=== PATIENT | female | born 1980 | race Caucasian/White ===

== ENCOUNTER 2020-12-04 23:35 | Emergency (ER) | payer BC, SELFPAY ==
[2020-12-04 23:41] VITALS: BP 155/83; PULSE 69; RESP 18; TEMP 36.6; O2SAT 98; BMI 35.7
--- NOTE | 2020-12-04 23:48 | ECG_ITS ---
[facility] Test Date: 2020-12-05 Pat Name: Loi Sanchez Department: Room: Gender: Female Financial Accounting Manager: : 1980 Requested By: Logan Joseph Order Number: [id number] Nicole MD: Maria Teresa Avila M.D. Measurements Intervals [place] Rate: 57 P: 47 SD: 127 QRS: 25 QRSD: 92 T: 10 QT: 420 QTc: 411 Interpretive Statements SINUS BRADYCARDIA No previous ECG available for comparison Electronically Signed On 12-05-2020 20:13:01 PATTERN STORAGE CLERK by Maria Teresa Avila M.D. [id number]
--- NOTE | 2020-12-04 23:48 | XRR_ITS ---
PROCEDURE INFORMATION: Exam: XR Chest, 1 View Exam date and time: 12/05/2020 12:16 AM Age: 40 years old Clinical indication: Chest pain; Other: Substernal radiating to left arm; Additional info: Cp TECHNIQUE: Imaging protocol: XR of the chest Views: 1 view. COMPARISON: CR Chest 2 views* [id number] 01/21/2017 1:09 AM FINDINGS: Lungs: No consolidation. Pleural space: No pleural effusion. No pneumothorax. Heart/Mediastinum: No cardiomegaly. Bones/joints: No acute fracture. XR/XR chest 1V portable [id number] IMPRESSION: No acute findings.
--- NOTE | 2020-12-05 00:09 | ED_ITS ---
HPI - Chest Pain General: Chief Complaint: Chest Pain Stated Complaint: chest pains/pain in left arm left side of neck/ Time Seen by Provider: 12/04/20 23:41 Source: patient Mode of arrival: ambulatory Limitations: no limitations History of Present Illness: HPI narrative: 40-year-old female who is a non- smoker with no history of medical problem states started having chest pain roughly 2 hours ago. States is a sharp pain in center of her chest rating down her arm or jaw on her abdomen. She states that has been constant but is eased up. She states it was originally a 7 out of 10 and currently is a 3 out of 10. She denies any nausea or shortness of breath. She denies any recent long trips or surgeries. Denies any vomiting or diarrhea. MD complaint: chest pain Associated symptoms: Deny abdominal pain, dyspnea, fever(s), nausea or vomiting Review of Systems Const: Denies: fever(s), chills, body aches or change in appetite Eyes: Denies: blurry vision or eye discomfort ENMT: Denies: throat pain or dental pain Card: Reports: chest pain Resp: Denies: dyspnea GI: Denies: abdominal pain, nausea, vomiting or diarrhea : Denies: dysuria Musc: Denies: neck pain or back pain Skin/Breast: Denies: rash Neuro: Denies: headache(s) Psych: Denies: depression Mj/Lymph: Denies: easy bruising All/Imm: Denies: urticaria [facility] ED Female Reproductive History: Date of last menstrual period: 11/26/20 Physical Exam Const: COMMON NORMALS: no acute distress, patient oriented x3 and healthy appearing HENMT: COMMON NORMALS: normocephalic and atraumatic HEAD & SCALP: normocephalic and atraumatic Eye: COMMON NORMALS: Equal, round and reactive pupils present and EOMs intact bilaterally PUPIL: Yes Equal, round and reactive pupils present Neck/C-Spine: COMMON NORMALS: full ROM and supple Chest: COMMONS NORMALS: normal inspection of the chest and normal palpation of entire chest wall Resp: COMMON NORMALS: normal respiratory effort, No retractions, No use of accessory muscles and clear to auscultation bilaterally AUSCULTATION: clear to auscultation bilaterally Cardio: COMMON NORMALS: regular rate, regular rhythm and No murmurs present (Cardio) RATE: regular rate RHYTHM: regular rhythm GI: COMMON NORMALS: Normal to inspection, nondistended, normoactive bowel sounds present, Soft to palpation, non-tender and no masses PALPATION: Yes Soft to palpation Extremity: COMMON NORMALS: normal to inspection and full ROM Neuro: COMMON NORMALS: patient oriented x3, moves all extremities and no focal motor deficits Psych: COMMON NORMALS: mental status grossly normal, Normal thought process p resent and cooperative THOUGHT PROCESS: Normal thought process present Skin: COMMON NORMALS: no rashes or lesions noted and no wounds GENERAL SKIN EXAM: no rashes or lesions noted Course Vital Signs: Vital signs: Vital Signs Temperature 97.8 F 12/04/20 23:41 Pulse Rate 71 12/05/20 01:13 Respiratory Rate 26 H 12/05/20 01:13 Blood Pressure 134/76 12/05/20 01:13 Pulse Oximetry 100 12/05/20 01:13 MDM - Chest Pain MDM Narrative: Medical decision making narrative: Patient presents here with chest pain that then became epigastric bowel pain. I believe is likely gastritis. Patient's abdominal CT and troponins here are all negative. Patient is stable for discharge and is to follow-up with PCP in 2 to 4 days. We will start her on Protonix and Zofran. She is to return if worsening. She understands agrees to plan. Lab Data: Labs: Lab Results 12/05/20 12/05/20 12/05/20 Range/Units 00:02 00:02 00:02 WBC 11.3 H (4.0-10.0) 10^3/ uL RBC 4.48 (4.1-5.3) 10^6/u L Hgb 13.0 (11.5-15.3) g/dL Hct 39.9 (37.0-47.0) % MCV 89.1 (81-99) fL MCH 29.0 (28.0-34.0) pg MCHC 32.6 (30.0-36.0) g/dL RDW 11.9 L (12.1-15.1) % Plt Count 315 (130-400) 10^3/c mm MPV 9.5 (7.4-10.4) fL Neut % (Auto) 64.3 % Lymph % (Auto) 28.6 % [place] % (Auto) 5.9 % Eos % (Auto) 0.6 % Baso % (Auto) 0.3 % Neut # (Auto) 7.25 (1.8-7.7) 10^3/u L Lymph # (Auto) 3.2 (0.8-4.8) 10^3/u L [place] # (Auto) 0.7 (0.2-0.9) 10^3/u L Eos # (Auto) 0.1 (0.0-0.8) 10^3/u L Baso # (Auto) 0.0 (0.0-0.1) 10^3/u L Nucleated RBC % (a uto) 0 % Nucleated RBCs # 0.0 /100WBC Sodium 140 (136-145) mmol/L Potassium 3.4 L (3.5-5.1) mmol/L Chloride 101 (98-107) mmol/L Carbon Dioxide 26 (22-29) mmol/L Anion Gap 16.4 (5-19) BUN 17 (6-20) mg/dL Creatinine 0.9 (0.5-0.9) mg/dL GFR Calculation 69.7 L (90-130) mL/min Glucose 123 H (65-115) mg/dL Calculated Osmolal ity 293 (285-295) mOsm/k g Calcium 9.2 (8.5-10.5) mg/dL Total Bilirubin 0.3 (0.15-1.2) mg/dL AST 12 (0-32) U/L ALT 15 (0-33) U/L Alkaline Phosphata se 72 (35-105) IU/L Troponin T Baselin e 6 (0-10) ng/L Troponin T 120 Min [place] (0-10) ng/L Delta Troponin T (0-10) ABS# Total Protein 6.6 (6.6-8.7) g/dL Albumin 4.2 (3.5-5.2) g/dL Globulin 2.4 (1.3-4.6) g/dL Lipase (13-60) U/L HCG, Qual (Negative) 12/05/20 12/05/20 12/05/20 Range/Units 00:02 00:02 02:21 WBC (4.0-10.0) 10^3/ uL RBC (4.1-5.3) 10^6/u L Hgb (11.5-15.3) g/dL Hct (37.0-47.0) % MCV (81-99) fL MCH (28.0-34.0) pg MCHC (30.0-36.0) g/dL RDW (12.1-15.1) % Plt Count (130-400) 10^3/c mm MPV (7.4-10.4) fL Neut % (Auto) % Lymph % (Auto) % [place] % (Auto) % Eos % (Auto) % Baso % (Auto) % Neut # (Auto) (1.8-7.7) 10^3/u L Lymph # (Auto) (0.8-4.8) 10^3/u L [place] # (Auto) (0.2-0.9) 10^3/u L Eos # (Auto) (0.0-0.8) 10^3/u L Baso # (Auto) (0.0-0.1) 10^3/u L Nucleated RBC % (a uto) % Nucleated RBCs # /100WBC Sodium (136-145) mmol/L Potassium (3.5-5.1) mmol/L Chloride (98-107) mmol/L Carbon Dioxide (22-29) mmol/L Anion Gap (5-19) BUN (6-20) mg/dL Creatinine (0.5-0.9) mg/dL GFR Calculation (90-130) mL/min Glucose (65-115) mg/dL Calculated Osmolal ity (285-295) mOsm/k g Calcium (8.5-10.5) mg/dL Total Bilirubin (0.15-1.2) mg/dL AST (0-32) U/L ALT (0-33) U/L Alkaline Phosphata se (35-105) IU/L Troponin T Baselin e (0-10) ng/L Troponin T 120 Min [place] 6.00 (0-10) ng/L Delta Troponin T 0 (0-10) ABS# Total Protein (6.6-8.7) g/dL Albumin (3.5-5.2) g/dL Globulin (1.3-4.6) g/dL Lipase 25 (13-60) U/L HCG, Qual Negative (Negative) Imaging Data^: CXR: Attestation: I personally reviewed and interpreted this imaging study as follows : My impression: no acute abnormality CT Abd/Pel: Radiologist's impression: [facility] [place] [address] CT Scan Report Signed Patient: Loi Sanchez Unit #: [id number] : 1980 Age/Sex: 40 / F ADM Date: 12/04/20 Loc: ER Room/Bed: Attending Dr: Ordering Provider/Ordering MD: Logan Joseph MD Date of Service: 12/05/20 Procedure(s): CT abdomen pelvis w con* [id number] Accession Number(s): [id number] Report Number: [id number] PROCEDURE INFORMATION: Exam: CT Abdomen And Pelvis With Contrast Exam date and time: 12/05/2020 1:05 AM Age: 40 years old Clinical indication: Nausea; Abdominal pain; Localized; Left upper quadrant (luq); Prior surgery; Surgery date: 6+ months; Surgery type: Gb; Additional info: Abd pain TECHNIQUE: Imaging protocol: Computed tomography of the abdomen and pelvis with intravenous contrast. Radiation optimization: All CT scans at this facility use at least one of these dose optimization techniques: automated exposure control; mA and/or kV adjustment per patient size (includes targeted exams where dose is matched to clinical indication); or iterative reconstruction. Contrast material: OMNI 300; Contrast volume: 95 ml; Contrast route: INTRAVENOUS (IV); COMPARISON: CT abdomen pelvis w con* [id number] 04/26/2014 11:32 AM RADIATION DOSE METRICS: Total DLP (mGy-cm): 957.81 FINDINGS: Lungs: Minimal atelectasis at bilateral lung bases. Liver: Unremarkable. Gallbladder and bile ducts: Status post cholecystectomy. The common bile duct is dilated to 1.2 cm. This may be a reaction to absent gallbladder. Pancreas: Unremarkable. Spleen: Unremarkable. Adrenal glands: Unremarkable. Kidneys and ureters: The right kidney is unremarkable. There is a 1.6 cm cyst in the left kidney upper pole. Stomach and bowel: No bowel obstruction identified. No diverticulitis identified. Appendix: A normal-appearing appendix is seen in the right lower quadrant. Intraperitoneal space: No free intraperitoneal air identified. No free intraperitoneal fluid identified. Vasculature: No abdominal aortic aneurysm. Lymph nodes: Unremarkable. Urinary bladder: Unremarkable as visualized. Reproductive: Unremarkable as visualized. Bones/joints: Unremarkable. No acute fracture. Soft tissues: Unremarkable. CT/CT abdomen pelvis w con* [id number] IMPRESSION: 1. No acute intra-abdominal/intrapelvic process identified. EKG Data^: EKG 1: Attestation: I personally reviewed and interpreted this EKG as follows: EKG interpretation date: 12/05/20 EKG interpretation time: 00:02 Interpretation: sinus marychuy hr [address] or t wave abnormalities qrs 92 qtc 415 Discharge Plan Discharge Patient Disposition: Home Clinical Impression: Abdominal pain Chest pain Qualifiers: Chest pain type: unspecified Qualified Code(s): R07.9 - Chest pain, unspecified Condition: Stable Prescriptions: New ondansetron 4 mg tablet,disintegrating 4 mg PO Q6H PRN (Reason: nausea and vomiting) Qty: 14 RF: 0 Protonix 40 mg tablet,delayed release (DR/EC) 40 mg PO DAILY Qty: 60 RF: 0 Discharge Orders: Discharge ED (Routine); Ordered 12/05/20 Ordered By: Logan Joseph Referrals: Nhi Cespedes FNP [Primary Care Provider] - 1-3 days Discharge Diet: Advance as tolerated Discharge Activity: Resume usual activity Patient Instructions: Abdominal Pain (ED) Coding Level of Care Code ED Surveying Technician for Chg Fwd Exam Comprehensive
[2020-12-05 00:11] LABS: Basophils % 0.3 %; Eosinophils # 0.1 10^3/uL (0.0-0.8); Eosinophils % 0.6 %; Hematocrit 39.9 % (37.0-47.0); Lymphocytes # 3.2 10^3/uL (0.8-4.8); Lymphocytes % 28.6 %; Mean Corpuscular HGB Conc 32.6 g/dL (30.0-36.0); Mean Corpuscular Volume 89.1 fL (81-99); Mean Platelet Volume 9.5 fL (7.4-10.4); Monocytes # 0.7 10^3/uL (0.2-0.9); Monocytes % 5.9 %; Neutrophils # 7.25 10^3/uL (1.8-7.7); Neutrophils % 64.3 %; Nucleated Red Blood Cells % 0 %; Platelet Count 315 10^3/cmm (130-400); Red Blood Count 4.48 10^6/uL (4.1-5.3); Red Cell Distribution Width 11.9 % (12.1-15.1); White Blood Count 11.3 10^3/uL (4.0-10.0)
[2020-12-05] MEDS: aspirin 81 mg Chew Tablet 324 MG PO (00:16)
[2020-12-05] MEDS: ondansetron 2 mg/ML SDV 2 mL 4 MG IVP ×2 (00:16→01:11)
[2020-12-05] MEDS: morphine 4 mg/mL SDV 1 mL IVP (00:16)
[2020-12-05 00:34] LABS: Alanine Aminotransferase 15 U/L (0-33); Albumin Level 4.2 g/dL (3.5-5.2); Alkaline Phosphatase 72 IU/L (35-105); Anion Gap 16.4 (5-19); Aspartate Amino Transferase 12 U/L (0-32); Blood Urea Nitrogen 17 mg/dL (6-20); Calcium 9.2 mg/dL (8.5-10.5); Carbon Dioxide 26 mmol/L (22-29); Chloride 101 mmol/L (98-107); Globulin 2.4 g/dL (1.3-4.6); Glomerular Filtration Rate 69.7 mL/min (90-130); Glucose 123 mg/dL (65-115); Osmolality Calculated 293 mOsm/kg (285-295); Potassium 3.4 mmol/L (3.5-5.1); Sodium 140 mmol/L (136-145); Total Bilirubin 0.3 mg/dL (0.15-1.2); Total Protein 6.6 g/dL (6.6-8.7)
[2020-12-05 00:36] LABS: Troponin(5th) Baseline 6 ng/L (0-10)
--- NOTE | 2020-12-05 01:03 | CTR_ITS ---
PROCEDURE INFORMATION: Exam: CT Abdomen And Pelvis With Contrast Exam date and time: 12/05/2020 1:05 AM Age: 40 years old Clinical indication: Nausea; Abdominal pain; Localized; Left upper quadrant (luq); Prior surgery; Surgery date: 6+ months; Surgery type: Gb; Additional info: Abd pain TECHNIQUE: Imaging protocol: Computed tomography of the abdomen and pelvis with intravenous contrast. Radiation optimization: All CT scans at this facility use at least one of these dose optimization techniques: automated exposure control; mA and/or kV adjustment per patient size (includes targeted exams where dose is matched to clinical indication); or iterative reconstruction. Contrast material: OMNI 300; Contrast volume: 95 ml; Contrast route: INTRAVENOUS (IV); COMPARISON: CT abdomen pelvis w con* [id number] 04/26/2014 11:32 AM RADIATION DOSE METRICS: Total DLP (mGy-cm): 957.81 FINDINGS: Lungs: Minimal atelectasis at bilateral lung bases. Liver: Unremarkable. Gallbladder and bile ducts: Status post cholecystectomy. The common bile duct is dilated to 1.2 cm. This may be a reaction to absent gallbladder. Pancreas: Unremarkable. Spleen: Unremarkable. Adrenal glands: Unremarkable. Kidneys and ureters: The right kidney is unremarkable. There is a 1.6 cm cyst in the left kidney upper pole. Stomach and bowel: No bowel obstruction identified. No diverticulitis identified. Appendix: A normal-appearing appendix is seen in the right lower quadrant. Intraperitoneal space: No free intraperitoneal air identified. No free intraperitoneal fluid identified. Vasculature: No abdominal aortic aneurysm. Lymph nodes: Unremarkable. Urinary bladder: Unremarkable as visualized. Reproductive: Unremarkable as visualized. Bones/joints: Unremarkable. No acute fracture. Soft tissues: Unremarkable. CT/CT abdomen pelvis w con* [id number] IMPRESSION: 1. No acute intra-abdominal/intrapelvic process identified. COMMENTS: Consistent with the [employer]'s Incidental Findings Committee white paper (J Am Emily Radiol 2018): Any incidental renal lesion less than 1 cm or classified as too small to characterize, or any incidental cystic renal lesion characterized as simple-appearing, is likely benign. No follow-up imaging is recommended for these lesions per consensus recommendations based on imaging criteria. Radiation Dose CTDIVOL = (mGy): DLP = 957.81 (mGy-cm)
[2020-12-05] MEDS: HYDROmorphone 1 mg/mL INJ 1 mL IVP (01:10)
[2020-12-05 01:13] VITALS: BP 134/76; PULSE 71; RESP 26; O2SAT 100
[2020-12-05 01:21] LABS: Lipase 25 U/L (13-60)
[2020-12-05 01:59] LABS: HCG, Serum Qual Negative (Negative)
[2020-12-05] MEDS: iohexol 300 mg/mL 100 mL Btl IV (02:11)
[2020-12-05 02:49] LABS: Troponin 5 2HR Delta 0 ABS# (0-10)
[2020-12-05 03:07] VITALS: BP 113/55; PULSE 57; RESP 18; O2SAT 97
== END 2020-12-05 03:07 | disposition home or self-care (01) ==
PROVIDERS: Emergency Provider Emergency Medicine; PCP Nurse Practitioner Family
DX: R07.9 Chest pain, unspecified (principal); R10.9 Unspecified abdominal pain
CPT/HCPCS: 12345; 71045; 74177; 80053; 83690; 84484; 84703; 85025; 93005; 96374; 96375; 96376; 99282; 99284; J1170; J2270; J2405; Q9967

== ENCOUNTER 2021-11-21 17:35 | Emergency (ER) | payer BC, SELFPAY ==
[2021-11-21 17:53] VITALS: BP 131/78; PULSE 87; RESP 22; TEMP 36.9; O2SAT 95; BMI 37.0
--- NOTE | 2021-11-21 20:27 | XRR_ITS ---
PROCEDURE INFORMATION: Exam: XR Chest Exam date and time: 11/21/2021 8:27 PM Age: 41 years old Clinical indication: Cough and shortness of breath; Additional info: SOB TECHNIQUE: Imaging protocol: XR of the chest. Views: 1 view. COMPARISON: No relevant prior studies available. FINDINGS: Lungs: Calcified granuloma in the right lower lung. No consolidation. Pleural spaces: Unremarkable. No pleural effusion. No pneumothorax. Heart/Mediastinum: Unremarkable. No cardiomegaly. Bones/joints: Unremarkable. XR/XR chest 1V portable [id number] IMPRESSION: No acute findings.
[2021-11-21] MEDS: sodium chloride 0.9% 1,000 ML 999 ML IV (20:40)
[2021-11-21] MEDS: ondansetron 2 mg/ML SDV 2 mL 4 MG IVP (20:42)
[2021-11-21] MEDS: ketorolac 30 mg/mL INJ 15 MG IVP (20:45)
--- NOTE | 2021-11-21 20:56 | ED_ITS ---
HPI - Headache General: Chief Complaint: Headache Stated Complaint: sob,headache Time Seen by Provider: 11/21/21 20:23 Source: patient Mode of arrival: ambulatory Limitations: no limitations History of Present Illness: HPI Narrative: 41-year-old female who states that she has had nasal congestion cough generalized body aches decreased appetite over the last 4 to 5 days states she is also had a lot of sinus pressure and sinus pain and felt very congested states she had a decreased appetite and just feeling generally malaised. No fever no dyspnea states she had mild headaches that come and gone no severe headaches denies any neck pain. Associated symptoms: Deny chest pain, nausea, rash or vomiting Review of Systems Const: Reports: chills and body aches Eyes: Denies: blurry vision or eye discomfort ENMT: Reports: nasal congestion Card: Denies: chest pain Resp: Reports: non-productive cough GI: Denies: abdominal pain, nausea, vomiting or diarrhea : Denies: dysuria Musc: Denies: neck pain or back pain Skin/Breast: Denies: rash Neuro: Reports: headache(s) Psych: Denies: depression Mj/Lymph: Denies: easy bruising All/Imm: Denies: urticaria [facility] ED Female Reproductive History: Date of last menstrual period: 11/26/20 Physical Exam Const: COMMON NORMALS: no acute distress, patient oriented x3 and healthy appearing HENMT: COMMON NORMALS: normocephalic and atraumatic HEAD & SCALP: normocephalic and atraumatic OTHER: Nasal congestion along with sinus tenderness over maxillary sinuses Eye: COMMON NORMALS: Equal, round and reactive pupils present and EOMs intact bilaterally PUPIL: Yes Equal, round and reactive pupils present Neck/C-Spine: COMMON NORMALS: full ROM, supple and no meningeal signs Chest: COMMONS NORMALS: normal inspection of the chest and normal palpation of entire chest wall Resp: COMMON NORMALS: normal respiratory effort, No retractions, No use of accessory muscles and clear to auscultation bilaterally AUSCULTATION: clear to auscultation bilaterally Cardio: COMMON NORMALS: regular rate, regular rhythm and No murmurs present (Cardio) RATE: regular rate RHYTHM: regular rhythm GI: COMMON NORMALS: Normal to inspection, nondistended, normoactive bowel sounds present, Soft to palpation, non-tender and no masses PALPATION: Yes Soft to palpation Extremity: COMMON NORMALS: normal to inspection and full ROM Neuro: COMMON NORMALS: patient oriented x3, moves all extremities and no focal motor deficits MENINGEAL SIGNS: Yes no meningeal signs Psych: COMMON NORMALS: mental status grossly normal, Normal thought process present and cooperative THOUGHT PROCESS: Normal thought process present Skin: COMMON NORMALS: no rashes or lesions noted and no wounds GENERAL SKIN EXAM: no rashes or lesions noted Course Vital Signs: Vital signs: Vital Signs Temperature 98.5 F 11/21/21 17:53 Pulse Rate 87 11/21/21 17:53 Respiratory Rate 22 H 11/21/21 17:53 Blood Pressure 131/78 11/21/21 17:53 Pulse Oximetry 95 11/21/21 17:53 MDM - Headache MDM Narrative: Medical decision making narrative: Patient presents here with cough congestion sinus pain likely has a maxillary sinusitis patient's headaches not severe no signs of meningitis blood work and Covid here negative we will start on Augmentin she is stable for discharge is to follow-up with PCP and return if worsening. Lab Data: Labs: Lab Results 11/21/21 11/21/21 11/21/21 20:50 20:50 20:55 WBC 4.4 10^3/uL 10^3/ uL (4.0-10.0) RBC 4.54 10^6/uL 10^6 /uL (4.1-5.3) Hgb 13.4 g/dL g/dL (11.5-15.3) Hct 40.6 % % (37.0-47.0) MCV 89.4 fl fl (81-99) MCH 29.5 pg pg (28.0-34.0) MCHC 33.0 g/dL g/dL (30.0-36.0) RDW 11.9 % L % (12.1-15.1) Plt Count 183 10^3/cmm 10^3 /cmm (130-400) MPV 9.4 fL fL (7.4-10.4) Neut % (Auto) 51.8 % % Lymph % (Auto) 35.6 % % [place] % (Auto) 11.7 % % Eos % (Auto) 0.2 % % Baso % (Auto) 0.2 % % Neut # (Auto) 2.30 10^3/uL 10^3 /uL (1.8-7.7) Lymph # (Auto) 1.6 10^3/uL 10^3/ uL (0.8-4.8) [place] # (Auto) 0.5 10^3/uL 10^3/ uL (0.2-0.9) Eos # (Auto) 0.0 10^3/uL 10^3/ uL (0.0-0.8) Baso # (Auto) 0.0 10^3/uL 10^3/ uL (0.0-0.1) Nucleated RBC % (a uto) 0 % % Nucleated RBCs # 0.0 /100WBC /100W BC Sodium 139 mmol/L mmol/L (136-145) Potassium 3.8 mmol/L mmol/L (3.5-5.1) Chloride 102 mmol/L mmol/L (98-107) Carbon Dioxide 23 mmol/L mmol/L (22-29) Anion Gap 17.8 (5-19) BUN 11 mg/dL mg/dL (6-20) Creatinine 0.7 mg/dL mg/dL (0.5-0.9) GFR Calculation 92.7 mL/min mL/mi n (90-130) Glucose 92 mg/dL mg/dL (65-115) Calculated Osmolal ity 287 mOsm/kg mOsm/ kg (285-295) Calcium 8.4 mg/dL L mg/dL (8.5-10.5) Total Bilirubin 0.3 mg/dL mg/dL (0.15-1.2) AST 37 U/L H U/L (0-32) ALT 42 U/L H U/L (0-33) Alkaline Phosphata se 105 IU/L IU/L (35-105) Total Protein 6.5 g/dL L g/dL (6.6-8.7) Albumin 4.2 g/dL g/dL (3.5-5.2) Globulin 2.3 g/dL g/dL (1.3-4.6) Lipase 23 U/L U/L (13-60) SARS-CoV-2 Ag (Rap id) Negative (Negative) Imaging Data^: CXR: Attestation: I personally reviewed and interpreted this imaging study as follows: My impression: no acute abnormality Discharge Plan Discharge Patient Disposition: Home Clinical Impression: Sinusitis Qualifiers: Sinusitis location: frontal Chronicity: acute Recurrence: non-recurrent Qualified Code(s): J01.10 - Acute frontal sinusitis, unspecified Condition: Stable Prescriptions: New Augmentin 875-125 mg tablet 1 tab PO BID Qty: 14 RF: 0 No Action ondansetron 4 mg tablet,disintegrating 4 mg PO Q6H PRN (Reason: nausea and vomiting) Qty: 14 RF: 0 Protonix 40 mg tablet,delayed release (DR/EC) 40 mg PO DAILY Qty: 60 RF: 0 Discharge Orders: Discharge ED (Routine); Ordered 11/21/21 Ordered By: Logan Joseph Referrals: Nhi Cespedes FNP [Primary Care Provider] - 1-3 days Discharge Diet: Advance as tolerated Discharge Activity: Resume usual activity Patient Instructions: Sinusitis (ED) Coding Level of Care Code ED Certified Recreational Therapist for Jelani Fwbetty Exam Comprehensive
[2021-11-21 20:59] VITALS: BP 118/71; PULSE 84; RESP 18; O2SAT 97
[2021-11-21 21:13] LABS: Basophils % 0.2 %; Eosinophils % 0.2 %; Hematocrit 40.6 % (37.0-47.0); Hemoglobin 13.4 g/dL (11.5-15.3); Lymphocytes # 1.6 10^3/uL (0.8-4.8); Lymphocytes % 35.6 %; Mean Corpuscular Hemoglobin 29.5 pg (28.0-34.0); Mean Corpuscular Volume 89.4 fl (81-99); Mean Platelet Volume 9.4 fL (7.4-10.4); Monocytes # 0.5 10^3/uL (0.2-0.9); Monocytes % 11.7 %; Neutrophils % 51.8 %; Nucleated Red Blood Cells % 0 %; Platelet Count 183 10^3/cmm (130-400); Red Blood Count 4.54 10^6/uL (4.1-5.3); Red Cell Distribution Width 11.9 % (12.1-15.1); White Blood Count 4.4 10^3/uL (4.0-10.0)
[2021-11-21 21:29] VITALS: BP 119/55; PULSE 76; RESP 20; O2SAT 100
[2021-11-21 21:30] LABS: Alanine Aminotransferase 42 U/L (0-33); Albumin Level 4.2 g/dL (3.5-5.2); Alkaline Phosphatase 105 IU/L (35-105); Blood Urea Nitrogen 11 mg/dL (6-20); Calcium 8.4 mg/dL (8.5-10.5); Carbon Dioxide 23 mmol/L (22-29); Chloride 102 mmol/L (98-107); Globulin 2.3 g/dL (1.3-4.6); Glomerular Filtration Rate 92.7 mL/min (90-130); Glucose 92 mg/dL (65-115); Lipase 23 U/L (13-60); Osmolality Calculated 287 mOsm/kg (285-295); Sodium 139 mmol/L (136-145); Total Bilirubin 0.3 mg/dL (0.15-1.2); Total Protein 6.5 g/dL (6.6-8.7)
[2021-11-21 21:34] LABS: Anion Gap 17.8 (5-19); Aspartate Amino Transferase 37 U/L (0-32); Potassium 3.8 mmol/L (3.5-5.1)
[2021-11-21 21:55] LABS: SARS Covid-2 Antigen Negative (Negative)
[2021-11-21] MEDS: dexamethasone 10 mg/mL INJ IVP (21:55)
[2021-11-21 22:00] VITALS: BP 119/55; O2SAT 100
== END 2021-11-21 22:00 | disposition home or self-care (01) ==
PROVIDERS: Emergency Provider Emergency Medicine; PCP Nurse Practitioner Family
DX: J01.10 Acute frontal sinusitis, unspecified (principal); R53.81 Other malaise
CPT/HCPCS: 71045; 80053; 83690; 85025; 87426; 96361; 96374; 96375; 99283; J1100; J1885; J2405; J7030

== ENCOUNTER 2022-07-26 18:00 | Emergency (ER) | payer BC, SELFPAY ==
[2022-07-26 18:10] VITALS: BP 148/87; PULSE 67; RESP 16; TEMP 36.6; O2SAT 99; BMI 37.0
--- NOTE | 2022-07-26 21:49 | USR_ITS ---
PROCEDURE INFORMATION: Exam: US Duplex Right Lower Extremity Veins, Limited Exam date and time: 07/26/2022 10:13 PM Age: 41 years old Clinical indication: Pain; Leg, lower; Right; Additional info: Calf tenderness TECHNIQUE: Imaging protocol: Real-time Duplex ultrasound of the Right Lower Extremity with 2-D perkins scale, color Doppler flow and spectral waveform analysis with image documentation. Limited exam was focused on the right lower extremity veins. COMPARISON: CR (LOW EXM, ) 07/26/2022 10:04 PM FINDINGS: Right deep veins: Unremarkable. The common femoral, femoral, proximal profunda femoral and popliteal veins are patent without thrombus. Normal Doppler waveforms. Normal compressibility and/or augmentation response. Right superficial veins: Unremarkable. Saphenofemoral junction is patent without thrombus. Soft tissues: Unremarkable. US/[place] [id number] IMPRESSION: No evidence of deep vein thrombosis.
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
[2022-07-26] MEDS: HYDROcodone-acetaminophen 7.5-325 mg Tablet 1 TAB PO (22:39)
[2022-07-26] MEDS: ketorolac 60 mg/2 mL INJ IM (23:44)
[2022-07-26 23:47] VITALS: BP 139/81; PULSE 70; RESP 16; TEMP 36.9; O2SAT 98
== END 2022-07-26 23:48 | disposition home or self-care (01) ==
PROVIDERS: Emergency Provider Physician Assistant; PCP Nurse Practitioner Family
DX: M79.604 Pain in right leg (principal)
CPT/HCPCS: 73590; 93971; 96372; 99284; J1885

== ENCOUNTER → 2023-09-04 10:54 | Outpatient (BNVA) | payer BC, SELFPAY | PROVIDERS: PCP Nurse Practitioner Family; Visit Provider Physician Assistant | DX: M47.26 Other spondylosis with radiculopathy, lumbar region (principal); M43.16 Spondylolisthesis, lumbar region; M51.36 Other intervertebral disc degeneration, lumbar region | CPT/HCPCS: 72110 ==

== ENCOUNTER 2024-08-16 13:37 | Outpatient (CLI) | payer BC, SELFPAY ==
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
== END 2024-08-16 13:38 | disposition home or self-care (01) ==
PROVIDERS: PCP Nurse Practitioner Family
DX: M91.12 Juvenile osteochondrosis of head of femur [Legg-Calve-Perthes], left leg (principal); V89.2XXA Person injured in unspecified motor-vehicle accident, traffic, initial encounter
CPT/HCPCS: 73502